=== PATIENT | female | born 1950 | race Caucasian/White ===

== ENCOUNTER 2023-03-16 20:38 | Inpatient (IN) | payer MEDICARE, OTHER ==
[~2023-03-16] VITALS: Ht 170.2 cm; Wt 54.9 kg
--- NOTE | 2023-03-16 21:05 | NUR ---
Patient placed on gurney in hallway due to no beds available in the ER at this time.
--- NOTE | 2023-03-16 21:30 | NUR ---
Patient able to ambulates to restroom with stand by assist. Patient calm and cooperative with periods of confusion.
[2023-03-16 22:40] LABS: *BILIRUBIN,URIN NEGATIVE (NEGATIVE); *BLOOD, URINE 2+ (NEGATIVE); *COLOR,URINE YELLOW (YELLOW); *KETONES,URINE NEGATIVE (NEGATIVE); *UROBILINOGEN,URINE 0.2 E.U./dl (NORMAL); LEUKOCYTE ESTERASE ,URINE 1+ (NEGATIVE); NITRITE, URINE NEGATIVE (NEGATIVE); UGLUCOSE NEGATIVE (NEGATIVE)
[2023-03-16 22:41] LABS: CARBON DIOXIDE 29 mmol/L (21-32); CHLORIDE 104 mmol/L (98-107); CREATININE 0.7 mg/dL (0.6-1.3); POTASSIUM 4.4 mmol/L (3.5-5.1); UREA NITROGEN, BLOOD 34 mg/dL (7-18)
[2023-03-16 22:43] LABS: *CLARITY,URINE HAZY (CLEAR)
[2023-03-16 22:46] LABS: *AMPHETAMINE, URINE NEGATIVE (NEGATIVE); *CANNABINOID, URINE NEGATIVE (NEGATIVE); *COCCAINE, URINE NEGATIVE (NEGATIVE); *PHENCYCLIDINE SCREEN,URINE NEGATIVE (NEGATIVE)
[2023-03-16 22:47] LABS: ALANINE AMINOTRANSFERASE 35 U/L (14-59); ALKALINE PHOSPHATASE 83 U/L (50-136); ASPARTATE AMINOTRANSFERASE 14 U/L (15-37); BILIRUBIN,DIRECT 0.1 mg/dL (0.0-0.2); BILIRUBIN,TOTAL 0.2 mg/dL (0.2-1.0); TOTAL PROTEIN, SERUM 6.8 g/dL (6.4-8.2)
[2023-03-16 22:49] LABS: ACETAMINOPHEN < 2.0 ug/mL (10-30)
--- NOTE | 2023-03-16 23:00 | NUR ---
Medically cleared by Dr Toribio.
[2023-03-16 23:11] LABS: MAGNESIUM 1.8 mg/dL (1.8-2.4)
[2023-03-16 23:36] LABS: HEMATOCRIT 32.4 % (31.2-41.9); MEAN CORPUSCULAR VOLUME 96.4 fL (75.5-95.3); PLATELET COUNT (AUTO) 249 K/uL (179-408)
[2023-03-16 23:38] LABS: BACTERIA,URINE FEW /HPF (NONE SEEN); RBC,URINE 20-50 /HPF (0-3)
--- NOTE | 2023-03-16 23:38 | NUR ---
Jermaine from PET TEAM placed patient on 5150 hold.
[2023-03-16 23:39] LABS: SQUAMOUS EPITHELIAL CELL,UR FEW /HPF (NONE SEEN)
[2023-03-16] MEDS ORDERED: IV NS 1000 ML 1,000 ML IV ONE ×2 (23:45)
[2023-03-17] MEDS ORDERED: TEMA15CA PO (00:03)
[2023-03-17] MEDS ORDERED: ALPR0.255 PO (00:03)
[2023-03-17] MEDS ORDERED: GABA-532 PO (00:03)
[2023-03-17] MEDS ORDERED: QUET25TA PO (00:03)
[2023-03-17] MEDS ORDERED: MAGNESIUM HYDROXIDE 30 ML LIQUID UDC PO PRN (01:45)
[2023-03-17] MEDS ORDERED: MAG HYDROX/AL HYDROX/SIMETH 30 ML LIQUID UDC PO PRN (01:45)
--- NOTE | 2023-03-17 01:57 | NUR ---
Transfered to MHU via gurny with no distress noted.
[2023-03-17] MEDS: TEMAZEPAM 7.5 MG CAPSULE PO PRN ×2 (02:40→23:31)
[2023-03-17 03:06] VITALS: BP 141/68; TEMP 97.6; O2SAT 99
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
[2023-03-17] MEDS: LORAZEPAM 0.5 MG TABLET PO PRN ×2 (06:23→13:23)
[2023-03-17 07:37] VITALS: BP 140/63; TEMP 98.4; O2SAT 90
[2023-03-17] MEDS: QUETIAPINE FUMARATE 25 MG TABLET PO SCH (11:33)
[2023-03-17] MEDS: GABAPENTIN 300 MG CAPSULE PO SCH ×2 (13:23→17:05)
--- NOTE | 2023-03-17 14:04 | NUR ---
ESE Initial Discharge Note: Pt currently resides at a board and care located at [address] [place] [address] . Per pt's board and care software requirements engineer, Dileep ([phone]), pt does not have any family. Dileep stated that pt requires a higher level of care that their facility cannot provide for the pt at this time. ESE will continue to work with pt, family and MD to ensure a safe and proper discharge plan.
--- NOTE | 2023-03-17 14:07 | NUR ---
Firearms Report: Correctional Treatment Specialist completed and submitted a [employer] firearms report for 5150 a danger to others and grave disability certifications. A copy of report has been placed in patient chart.
--- NOTE | 2023-03-17 14:24 | NUR ---
Nursing- Stayed in her room most of the time, comes out to the Nurses station, making her simple basic needs known to he staff, encouraged to verbalized needs and feelings .Verbalized feelings of being anxious, encouraged participation in her group activity . been meds. complaint, flat affect, guarded
[2023-03-17 15:34] VITALS: BP 123/58; TEMP 98.1; O2SAT 97
[2023-03-17] MEDS: ALPRAZOLAM 0.25 MG TABLET PO SCH (17:05)
[2023-03-17] MEDS: NITROFURANTOIN/NITROFURAN MAC 100 MG CAPSULE PO SCH (17:06)
[2023-03-17 20:15] VITALS: BP 126/64; TEMP 98.3; O2SAT 96
[2023-03-17] MEDS ORDERED: QUETIAPINE FUMARATE 25 MG TABLET PO SCH (21:00)
[2023-03-18 07:30] VITALS: BP 148/71; TEMP 98.4; O2SAT 96
[2023-03-18] MEDS: GABAPENTIN 300 MG CAPSULE PO SCH ×3 (08:13→16:06)
[2023-03-18] MEDS: NITROFURANTOIN/NITROFURAN MAC 100 MG CAPSULE PO SCH ×2 (08:13→16:06)
[2023-03-18] MEDS: QUETIAPINE FUMARATE 25 MG TABLET PO SCH ×2 (08:13→16:06)
[2023-03-18] MEDS: LORAZEPAM 0.5 MG TABLET PO PRN (08:13)
[2023-03-18 15:02] VITALS: BP 141/65; TEMP 98.4; O2SAT 98
[2023-03-18] MEDS: ALPRAZOLAM 0.25 MG TABLET PO SCH (16:06)
[2023-03-18 20:00] VITALS: BP 131/63; TEMP 97.6; O2SAT 96
[2023-03-18] MEDS ORDERED: QUETIAPINE FUMARATE 25 MG TABLET PO SCH (21:00)
[2023-03-19] MEDS: LORAZEPAM 0.5 MG TABLET PO PRN ×2 (01:55→14:21)
--- NOTE | 2023-03-19 02:00 | NUR ---
Pt was still restless during bedtime hours. Pt requested medication to help alleviate this symptom/feeling. Gave Lorazepam 0.5mg po prn. Safe environment provided. Will continue to monitor.
[2023-03-19] MEDS: TEMAZEPAM 7.5 MG CAPSULE PO PRN ×2 (02:15→21:34)
--- NOTE | 2023-03-19 02:15 | NUR ---
Gave Restoril 7.5mg po prn per patient request to help with sleep. Pt was still exhibiting restlessness via wandering, standing up/pacing her bedroom, and asking for medications even when they were already given. Safe environment provided. Addendum: 03/19/23 at 0218 by KIET GUZMAN LVN Gave Restoril 7.5mg at 2306 hours per pt request.
[2023-03-19 07:50] VITALS: BP 131/61; TEMP 97.9; O2SAT 97
[2023-03-19] MEDS: QUETIAPINE FUMARATE 25 MG TABLET PO SCH ×2 (08:15→12:33)
[2023-03-19] MEDS: NITROFURANTOIN/NITROFURAN MAC 100 MG CAPSULE PO SCH ×2 (08:15→16:51)
[2023-03-19] MEDS: GABAPENTIN 300 MG CAPSULE PO SCH ×3 (08:16→16:51)
--- NOTE | 2023-03-19 14:47 | NUR ---
Patient is isolative, withdrawn, disorganized, depressed, cooperative with nursing care, medication seeker. Patient is given Ativan 0.5 mg at 14:21 for anxiety, will be monitored for effectiveness. Reality orientation provided. Fall and safety precautions implemented.
[2023-03-19 16:16] VITALS: BP 142/69; TEMP 98; O2SAT 97
[2023-03-19] MEDS: ALPRAZOLAM 0.25 MG TABLET PO SCH (16:51)
[2023-03-19 19:55] VITALS: BP_SYST 113; BP_SYST 144; BP_DIAS 70; BP_DIAS 77; TEMP 97.6; TEMP 97.8; O2SAT 98
[2023-03-19] MEDS ORDERED: QUETIAPINE FUMARATE 25 MG TABLET PO SCH (21:00)
[2023-03-20] MEDS: ACETAMINOPHEN 325 MG TABLET PO PRN (01:39)
[2023-03-20] MEDS: LORAZEPAM 0.5 MG TABLET PO PRN ×4 (01:39→19:58)
--- NOTE | 2023-03-20 05:08 | NUR ---
Pt is confused, forgetful, anxious and restless. Pt keeps asking for medications even after she gets her medications. Pt states " Give me medications" " My is a chief" "you are going to longterm" " I am going to hali you". Pt lays down on the floor when she does not get her way and when staff tells pt she already had her medications pt stayed " you bitch" "you fucking bitch". Pt is ambulatory A/O x1 and compliant with medications. Redirected, reoriented and reassured. Safety measures in place, continue to monitor for safety and behavioral escalation.
[2023-03-20 07:33] VITALS: BP 139/64; TEMP 98; O2SAT 96
[2023-03-20] MEDS: NITROFURANTOIN/NITROFURAN MAC 100 MG CAPSULE PO SCH ×2 (08:08→16:16)
[2023-03-20] MEDS: GABAPENTIN 300 MG CAPSULE PO SCH ×3 (08:09→16:17)
[2023-03-20] MEDS: QUETIAPINE FUMARATE 25 MG TABLET PO SCH ×3 (08:09→16:17)
[2023-03-20 16:14] VITALS: BP 114/50; TEMP 97.8; O2SAT 97
[2023-03-20 19:48] VITALS: BP 132/58; TEMP 98.1; O2SAT 96
[2023-03-20] MEDS ORDERED: QUETIAPINE FUMARATE 25 MG TABLET PO SCH (21:00)
[2023-03-20] MEDS ORDERED: QUETIAPINE FUMARATE 100 MG TABLET PO SCH (21:00)
[2023-03-21] MEDS: TEMAZEPAM 7.5 MG CAPSULE PO PRN ×2 (01:04→22:40)
[2023-03-21] MEDS: LORAZEPAM 0.5 MG TABLET PO PRN ×3 (04:05→20:17)
--- NOTE | 2023-03-21 04:58 | NUR ---
Patient has been complaining of " Having a lot of anxiety " , frequently during the night. Every hour or two the patient would come to the station asking for medications and food . So far this shift, the patient has slept only 30. minutes. Reassurance is ongoing and the PRN medications ordered, appear to have little to no effect. Safety Stratiges are in place . The patient does wonder around the unit and takes things from other rooms. This scenario writer found bags of cloths in her closet ,that did not belong to her and a lunch box. The patient claimed that " Those things were given to me by the lady ". Staff is continuing to monitor any increase in confusion and delusions , as well as for any escalation r/t drug seeking behaviors.
[2023-03-21 07:51] VITALS: BP 121/62; TEMP 98.2; O2SAT 98
[2023-03-21] MEDS: NITROFURANTOIN/NITROFURAN MAC 100 MG CAPSULE PO SCH ×2 (08:15→16:24)
[2023-03-21] MEDS: QUETIAPINE FUMARATE 25 MG TABLET PO SCH ×3 (08:15→16:24)
[2023-03-21] MEDS: GABAPENTIN 300 MG CAPSULE PO SCH ×3 (08:16→16:24)
--- NOTE | 2023-03-21 15:38 | NUR ---
Received patient is alert and oriented x1 confused and disoriented, patient is isolative withdrawn no interaction with other peers,able to make simple needs know. intrusive about her medication constantly coming to nurse station asking for her medication . wandering in the unit get into everybody room required redirection at all time denies pain or discomfort,ambulated independent ,will continue close monitoring.
[2023-03-21 16:14] VITALS: BP 125/61; TEMP 98; O2SAT 98
[2023-03-21 19:55] VITALS: BP 120/62; TEMP 98.1; O2SAT 95
--- NOTE | 2023-03-21 20:30 | NUR ---
Received patient in the hallway. She is noted A/O x 2. she is able to ambulate with slow but steady gait. Patient appears depressed. she complaints of having Anxiety and she ask for medications like Xanax. she denied SI/HI/VH/AH she is able to verbalized her feeling. patient needs constant supervision and closed observation as she wonders around the unit waiting for the opportunity to go to the nurse's charting room and take stuff form there. she was caught taking a bag of clothes from that room. when asked why, she said "those are my clothes". patient also requires reality orientation and reassurance. PO fluids and snacks were given. he is reassured for his safety. safety and fall precautions are in place. will continue to monitor.
[2023-03-21] MEDS ORDERED: QUETIAPINE FUMARATE 100 MG TABLET PO SCH (21:00)
[2023-03-22] MEDS: LORAZEPAM 0.5 MG TABLET PO PRN ×2 (01:25→05:37)
--- NOTE | 2023-03-22 07:05 | NUR ---
PATIENT SLEPT FOR APPROX 2 HRS THROUGH THE NIGHT. SHE IS NOTED ASKING FOR ATIVAN PO PRN EVERY TIME IT IS DUE. SHE STATED SHE FEELS ANXIOUS ALL THE TIME. SHE IS REASSURED FOR HER SAFETY. WILL CONTINUE TO MONITOR.
--- NOTE | 2023-03-22 07:15 | NUR ---
GPS Notes: Patient awake, walking with steady gait, requesting medications. Educated patient on medications schedule.fall and safety precaution implemented, will continue to monitor.
[2023-03-22 08:03] VITALS: BP 144/74; TEMP 98.1; O2SAT 96
[2023-03-22] MEDS: QUETIAPINE FUMARATE 25 MG TABLET PO SCH (08:05)
[2023-03-22] MEDS: NITROFURANTOIN/NITROFURAN MAC 100 MG CAPSULE PO SCH (08:05)
[2023-03-22] MEDS: GABAPENTIN 300 MG CAPSULE PO SCH ×4 (08:05→20:54)
[2023-03-22] MEDS: DIVALPROEX 250 MG TABLET.DR PO SCH ×2 (10:28→20:54)
[2023-03-22] MEDS: OLANZAPINE 2.5 MG TABLET PO SCH ×3 (10:28→16:20)
--- NOTE | 2023-03-22 11:12 | NUR ---
GPS Nursing notes: Patient is walking around still focus on medications, dr gardner spoke with patient, new medication ordered, patient aware that she needs to take schedule medications as ordered, patient is redirected and medication compliant, encourage patient to participate with daily activities but refused. .
--- NOTE | 2023-03-22 13:11 | NUR ---
GPS Nursing notes: Patient is going to room to room, taking other patients belongings, patient needs constant verbal redirections for safety. Patient took medications, educated patient on medications scheduled. fall and safety precautions implemented, emotional support provided.
[2023-03-22 16:41] VITALS: BP 131/54; TEMP 97.8; O2SAT 99
[2023-03-22] MEDS: HYDROXYZINE PAMOATE 25 MG CAPSULE PO PRN (18:59)
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
[2023-03-22 19:48] VITALS: BP 136/64; TEMP 98.1; O2SAT 98
--- NOTE | 2023-03-22 20:30 | NUR ---
Received patient in her room in bed. She is noted awake A/O x 2. she is able to ambulate with slow but steady gait. patient noted less anxious less depressed. she is somewhat redirectable. She requires reality orientation and reassurance. PO fluids and snacks were given. he is reassured for his safety. safety and fall precautions are in place. will continue to monitor.
[2023-03-22] MEDS: OLANZAPINE 5 MG TABLET PO SCH (20:54)
[2023-03-22] MEDS: TEMAZEPAM 15 MG CAPSULE PO PRN (23:08)
[2023-03-23] MEDS: HYDROXYZINE PAMOATE 25 MG CAPSULE PO PRN ×2 (01:32→15:31)
[2023-03-23 07:50] VITALS: BP 105/62; TEMP 98; O2SAT 98
[2023-03-23] MEDS: GABAPENTIN 300 MG CAPSULE PO SCH ×4 (08:50→20:28)
[2023-03-23] MEDS: DIVALPROEX 250 MG TABLET.DR PO SCH ×2 (08:50→20:28)
[2023-03-23] MEDS: OLANZAPINE 2.5 MG TABLET PO SCH ×3 (08:50→17:28)
--- NOTE | 2023-03-23 10:06 | NUR ---
Patient had court hearing today, and saw setter Chani Prado gave 14 Day hold probable cause for GD.
[2023-03-23] MEDS: ACETAMINOPHEN 325 MG TABLET PO PRN (13:08)
[2023-03-23 15:13] VITALS: BP 114/55; TEMP 98; O2SAT 98
--- NOTE | 2023-03-23 15:53 | NUR ---
Received patient awake in her room. Patient is A/O X 2 to person. Patient is medication seeker, gets easily agitated and has outbursts when does not have any medications due. Patient has poor judgment and impulse control. Reality orientation provided. Fall and safety precautions implemented.
[2023-03-23 20:12] VITALS: BP 112/68; TEMP 98.1
[2023-03-23] MEDS: OLANZAPINE 5 MG TABLET PO SCH (20:27)
[2023-03-23] MEDS: TEMAZEPAM 15 MG CAPSULE PO PRN (23:44)
--- NOTE | 2023-03-24 04:57 | NUR ---
Patient A&OX1, wandering around the unit, confused, intrusive and going in other patients room. Patient not sleeping as she is fixated with her med seeking behavior. Needs constant redirection, with setting limits of the behavior necessary. She is forgetful, unable to remember informations given, tends to ask the same demands. Prns given with no effectivity. Close monitoring and frequent rounding observed for safety.
[2023-03-24] MEDS: HYDROXYZINE PAMOATE 25 MG CAPSULE PO PRN ×2 (06:11→16:04)
[2023-03-24] MEDS: ACETAMINOPHEN 325 MG TABLET PO PRN (07:28)
[2023-03-24 07:58] VITALS: BP 110/61; TEMP 98.4; O2SAT 98
[2023-03-24] MEDS: GABAPENTIN 300 MG CAPSULE PO SCH ×4 (08:48→20:46)
[2023-03-24] MEDS: DIVALPROEX 250 MG TABLET.DR PO SCH ×2 (08:48→20:46)
[2023-03-24] MEDS: OLANZAPINE 2.5 MG TABLET PO SCH ×3 (08:48→17:40)
[2023-03-24 15:10] VITALS: BP 107/50; TEMP 98.4; O2SAT 99
--- NOTE | 2023-03-24 15:49 | NUR ---
Patient is A/O X 2 to person. Patient is forgetful, confused, disoriented, disorganized, medication seeker. Patient comes in the nursing station and demands medications punching the glass. Patient states "Give me my meds!" Patient needs lots of prompts and redirection. Patient requests PRN's when she does not have any scheduled medication, and gets agitated and combative when no PRN's are due either. Patient is intrusive and hid other patient's belongings underneath her pillow. Patient has poor judgement and impulse control. Reality orientation provided. Fall and safety precautions implemented.
[2023-03-24 20:00] VITALS: BP 122/61; TEMP 98.6; O2SAT 96
[2023-03-24] MEDS: OLANZAPINE 5 MG TABLET PO SCH (20:45)
[2023-03-24] MEDS ORDERED: NITROFURANTOIN/NITROFURAN MAC 100 MG CAPSULE PO SCH (21:00)
[2023-03-24] MEDS: TEMAZEPAM 15 MG CAPSULE PO PRN (23:37)
[2023-03-25 07:30] VITALS: BP 142/66; TEMP 97.8; O2SAT 98
[2023-03-25] MEDS: OLANZAPINE 2.5 MG TABLET PO SCH ×3 (08:15→16:36)
[2023-03-25] MEDS: DIVALPROEX 250 MG TABLET.DR PO SCH ×3 (08:15→16:36)
[2023-03-25] MEDS: GABAPENTIN 300 MG CAPSULE PO SCH ×4 (08:15→20:00)
[2023-03-25] MEDS: ACETAMINOPHEN 325 MG TABLET PO PRN (10:38)
--- NOTE | 2023-03-25 14:39 | NUR ---
Patient is more redirectable, less outbursts about not having medications when she wants, every hour. Patient is more cooperative, isolative, depressed, disorganized, anxious and agitated at times. Patient is A/O X 2 to person. Patient is encourage to verbalize concerns. Fall and safety precautions implemented.
[2023-03-25 15:09] VITALS: BP 121/62; TEMP 98.2; O2SAT 98
[2023-03-25] MEDS: HYDROXYZINE PAMOATE 25 MG CAPSULE PO PRN ×2 (18:13→22:31)
[2023-03-25 19:53] VITALS: BP 122/71; TEMP 97.6; O2SAT 98
[2023-03-25] MEDS: OLANZAPINE 5 MG TABLET PO SCH (19:59)
[2023-03-26] MEDS: TEMAZEPAM 15 MG CAPSULE PO PRN (01:03)
--- NOTE | 2023-03-26 05:33 | NUR ---
Patient anxious all night. Medications constantly being requested. The PRNs that are ordered at this time, are ineffective in reducing the patients stress level. Poor sleep hours again . The patient stated " Not getting the medications I need is torture, it's abuse ! " The patient was not willing to engage in any meaningful conversation or elaborate after that. Reassurance was provided. Sleep hours are 3.15. Safety Stratiges are in place and ongoing. The patient is isolative, non interactive with peers , nervous and fixated on medications to ease " This horrible feeling that doesn't go away ".
[2023-03-26] MEDS: HYDROXYZINE PAMOATE 25 MG CAPSULE PO PRN ×3 (06:24→22:30)
--- NOTE | 2023-03-26 07:15 | NUR ---
GPS Nursing notes: Patient asleep at this time, with no S/S of distress noted, fall and safety precautions implemented, will continue to monitor.
[2023-03-26 08:35] VITALS: BP 106/49; TEMP 97.8; O2SAT 100
[2023-03-26] MEDS: OLANZAPINE 2.5 MG TABLET PO SCH ×3 (08:52→17:04)
[2023-03-26] MEDS: DIVALPROEX 250 MG TABLET.DR PO SCH ×3 (08:52→17:04)
[2023-03-26] MEDS: GABAPENTIN 300 MG CAPSULE PO SCH ×4 (08:52→20:04)
--- NOTE | 2023-03-26 13:11 | NUR ---
GPS Nursing notes: Patient is guarded, withdrawn, staying in her room, slept most of the morning, patient denies AH at this time, participated with self care, Observed patient sitting on her bed combing her hair. affect is flat but also observed a single smile when patient talking to nursing students, patient has not request prn medications at this time, patient taking all schedule medication as ordered, will continue to monitor.
--- NOTE | 2023-03-26 14:09 | NUR ---
GPS Nursing notes: Patient walking down hallway, "My is Omar Silvestre, he is the chief of the fire [employer], I am feeling anxious can I have my medication?" patient encourage to express feeling and thoughts, stated she feel anxious, prn po given at this time. Emotional support provided, will continue to monitor.
[2023-03-26 15:52] VITALS: BP 114/60; TEMP 98; O2SAT 100
[2023-03-26 19:38] VITALS: BP 152/67; TEMP 98; O2SAT 96
[2023-03-26] MEDS: ACETAMINOPHEN 325 MG TABLET PO PRN (20:04)
[2023-03-26] MEDS: OLANZAPINE 5 MG TABLET PO SCH (20:04)
[2023-03-27] MEDS: TEMAZEPAM 15 MG CAPSULE PO PRN (00:39)
[2023-03-27] MEDS: ACETAMINOPHEN 325 MG TABLET PO PRN ×2 (05:25→18:47)
[2023-03-27] MEDS: HYDROXYZINE PAMOATE 25 MG CAPSULE PO PRN ×2 (05:26→22:52)
--- NOTE | 2023-03-27 06:09 | NUR ---
Patient slept 0.00 hours last night. Per day shift, the patient has slept most of the day. All night long this patient was coming out of her room asking for medication and food. Poor situational awareness and insight. When this health technical writer encouraged the patient to wait or try other coping skill, the patient verbalizes "Call the Doctor right now or my Captain Konrad will have you fired." Redirection , distraction, education, active listening, firm kindness and limit setting were all in play during the shift. Safety Stratiges on going.
[2023-03-27 07:46] VITALS: BP 93/43; TEMP 97.2; O2SAT 97
[2023-03-27] MEDS: DIVALPROEX 250 MG TABLET.DR PO SCH ×3 (08:27→16:46)
[2023-03-27] MEDS: OLANZAPINE 2.5 MG TABLET PO SCH ×3 (08:27→16:46)
[2023-03-27] MEDS: GABAPENTIN 300 MG CAPSULE PO SCH ×4 (08:27→20:58)
[2023-03-27 15:54] VITALS: BP 119/55; TEMP 97.6; O2SAT 98
[2023-03-27] MEDS: OLANZAPINE 5 MG TABLET PO SCH (20:57)
[2023-03-27 21:45] VITALS: BP 104/50; TEMP 97.9; O2SAT 99
[2023-03-28] MEDS: ACETAMINOPHEN 325 MG TABLET PO PRN ×3 (00:36→21:14)
[2023-03-28] MEDS: TEMAZEPAM 15 MG CAPSULE PO PRN ×2 (01:55→21:45)
--- NOTE | 2023-03-28 02:59 | NUR ---
Patient was up a couple of times , anxious but with less intensity as the previous nights. This senior underwriter was able to engage in somewhat meaningful conversation with the patient. The patient stated " I have terrible thoughts , over and over in my head about seeing my dog run into the street and get hit by a car. Did you know that I Omar Silvestre but never met him in person ?" True or not, the patient seems to believe what she is saying, too be true. Eventually, the patient fell asleep. Safety Stratiges are in place and ongoing. No acute issues at this time.
[2023-03-28 07:53] VITALS: BP 112/63; TEMP 97.7; O2SAT 95
[2023-03-28] MEDS: DIVALPROEX 250 MG TABLET.DR PO SCH ×3 (08:31→16:12)
[2023-03-28] MEDS: OLANZAPINE 2.5 MG TABLET PO SCH ×3 (08:31→16:12)
[2023-03-28] MEDS: HYDROXYZINE PAMOATE 25 MG CAPSULE PO PRN (08:31)
[2023-03-28] MEDS: GABAPENTIN 300 MG CAPSULE PO SCH ×4 (08:32→20:25)
--- NOTE | 2023-03-28 09:12 | NUR ---
ESE SNF Referral: ESE faxed clinicals to [facility] ([phone]) on Tuesday03/25/23 and spoke with Joan in the admissions regarding the referral. ESE faxed to [facility] ([phone]) [address] [place] [address] and spoke with Selena who are reviewing the pt's file. ESE will follow-up.
--- NOTE | 2023-03-28 10:42 | NUR ---
SW Discharge Update: SW contacted pt's board and care general dentist/owner, Dileep ([phone]) to discuss pt's discharge plan and SW was not able to speak to him or leave a voicemail.
[2023-03-28 10:50] LABS: HEMATOCRIT 32.5 % (31.2-41.9); MEAN CORPUSCULAR HEMOGLOBIN 32.6 uug (24.7-32.8); MEAN CORPUSCULAR VOLUME 96.5 fL (75.5-95.3); PLATELET COUNT (AUTO) 243 K/uL (179-408)
[2023-03-28 11:00] LABS: BILIRUBIN,TOTAL 0.3 mg/dL (0.2-1.0); CREATININE 0.9 mg/dL (0.6-1.3); POTASSIUM 4.5 mmol/L (3.5-5.1); TOTAL PROTEIN, SERUM 6.5 g/dL (6.4-8.2)
--- NOTE | 2023-03-28 15:01 | NUR ---
Received patient is alert and oriented x2 confused and disoriented, patient is isolative withdrawn no interaction with other peers,able to make simple needs know. intrusive about her medication constantly coming to nurse station asking for her medication . denies pain or discomfort,ambulated independent ,will continue close monitoring.
[2023-03-28 17:13] VITALS: BP 99/49; TEMP 98.3; O2SAT 96
[2023-03-28] MEDS: OLANZAPINE 5 MG TABLET PO SCH (20:25)
--- NOTE | 2023-03-28 20:30 | NUR ---
Received patient in the hallway. She is noted A/O x 2. able to ambulate with slow but steady gait. her affect is blunted, mood is low. She is fixed on her medications and she is constantly asking for medications. she required to set limitations for her behavior. she denied SI/HI/VH/AH. she is somewhat better at redirections. PO fluids and snacks were given. She is reassured for her safety. safety and fall precautions are in place. will continue to monitor.
[2023-03-28 20:46] VITALS: BP 95/46; TEMP 98; O2SAT 96
[2023-03-29] MEDS: HYDROXYZINE PAMOATE 25 MG CAPSULE PO PRN ×2 (04:43→11:21)
--- NOTE | 2023-03-29 06:56 | NUR ---
PATIENT SLEPT FOR APPROX 7HRS THROUGH THE NIGHT. SHE CONTINUE FIXED ON TAKING PILLS CONSTANTLY. SHE NEEDS CONSTANT REDIRECTION AND REASSURANCE. WILL CONTINUE TO MONITOR.
[2023-03-29 07:36] VITALS: BP 125/71; TEMP 98.4; O2SAT 100
[2023-03-29] MEDS: DIVALPROEX 250 MG TABLET.DR PO SCH ×3 (08:29→16:45)
[2023-03-29] MEDS: GABAPENTIN 300 MG CAPSULE PO SCH ×4 (08:29→20:08)
[2023-03-29] MEDS: OLANZAPINE 2.5 MG TABLET PO SCH ×3 (08:29→16:45)
[2023-03-29] MEDS: ACETAMINOPHEN 325 MG TABLET PO PRN ×2 (08:54→15:42)
--- NOTE | 2023-03-29 09:00 | NUR ---
Alert, oriented x 2, depressed, anxious. Verbalized sleeping well. Denies SI. Self care. Reports of headache, Tylenol po given.
--- NOTE | 2023-03-29 12:30 | NUR ---
Anxious, Vistaril given, calm and resting after. Eating well for lunch and asking for more pudding to eat.
[2023-03-29 15:40] VITALS: BP 104/51; TEMP 98.2; O2SAT 99
--- NOTE | 2023-03-29 15:45 | NUR ---
Reports of back ache, Tylenol po given
--- NOTE | 2023-03-29 17:11 | NUR ---
Quiet, keeps to herself but verbalized need for medication when needed
[2023-03-29 19:52] VITALS: BP 116/64; TEMP 98.2; O2SAT 98
[2023-03-29] MEDS: OLANZAPINE 5 MG TABLET PO SCH (20:08)
[2023-03-29] MEDS ORDERED: DIVALPROEX 250 MG TABLET.DR PO SCH (21:00)
[2023-03-29] MEDS: TEMAZEPAM 15 MG CAPSULE PO PRN (22:23)
[2023-03-30] MEDS: HYDROXYZINE PAMOATE 25 MG CAPSULE PO PRN (01:35)
--- NOTE | 2023-03-30 05:24 | NUR ---
Patient in the room when received, responding to her name. Patient unable to engage in any meaningful conversation. She remain anxious, needing medications RTC. Poor insight and poor judgment. All prn's given with no effectivity. She is in low mood, isolative and withdrawn. Comes out of her room to demand for med, food and fluids. Patient slept poorly this shift. Med seeking behavior ensues. Safety measures in place.
--- NOTE | 2023-03-30 08:05 | NUR ---
SW Discharge Update: SW contacted pt's board and care senior quality analyst, Dileep ([phone]) to discuss pt's discharge plan and SW was not able to speak to him or leave a voicemail.
[2023-03-30 08:07] VITALS: BP 100/57; TEMP 98.2; O2SAT 98
[2023-03-30] MEDS: DIVALPROEX 250 MG TABLET.DR PO SCH ×3 (08:11→17:25)
[2023-03-30] MEDS: OLANZAPINE 2.5 MG TABLET PO SCH ×3 (08:11→17:25)
--- NOTE | 2023-03-30 08:32 | NUR ---
SW Discharge Update: SW contacted pt's board and care medical records specialist, Dileep ([phone]) to discuss pt's discharge plan and SW was not able to speak to him or leave a voicemail.
[2023-03-30] MEDS: GABAPENTIN 300 MG CAPSULE PO SCH ×3 (09:06→17:25)
--- NOTE | 2023-03-30 09:18 | NUR ---
SW Discharge Update: ESE referred pt to [facility] located at [address] [place] [address] and spoke with municipal services managerBeata [phone] who confirmed she will come to evaluate the pt. Pt does not have any family contact per pts previous board and care conservation officer Dileep [phone]. Pt is aware and agreeable with her new discharge plan as she is aware her previous board and care cannot accept her back per Dileep.
[2023-03-30] MEDS: ACETAMINOPHEN 325 MG TABLET PO PRN (11:30)
[2023-03-30 15:45] VITALS: BP 100/53; TEMP 98; O2SAT 98
--- NOTE | 2023-03-30 15:46 | NUR ---
Patient is medication seeker, demanding, disorganized, having outbursts at times, poor judgement and impulse control. Patient is A/O X 2 to person, place. Reassurance given. Fall and safety precautions implemented.
--- NOTE | 2023-03-30 16:02 | NUR ---
ESE Discharge Note: Pt will be discharged to [facility] located at [address] [facility] [address] ([phone]). ESE spoke with Beata umana ([phone]) that Maintenance Mechanic 2Nd Shift Matthias at the facility states they are ready to accept the patient today. Pt is aware and agreeable with discharge plan. Pt does not have any family contact. Pt is alert and oriented x1, is unable to plan for self-care at this time. However, pt is willing to accept care at SNF. Pt denies any suicidal or homicidal ideation. Pt will follow-up with [facility] located at [address] [place] [phone] ([phone]) via teletherapy. A psychiatrist will be assigned during pts consultation on 04/05/23. ESE referred pt to [facility] for primary doctor located at [address] [facility], [address], [place] [address] ([phone]). Pt presents with calm mood and congruent affect. PHARMACY: [facility] ([phone])[address] [place] [address].
--- NOTE | 2023-03-30 16:08 | NUR ---
ESE Final Discharge Note: Pt will be discharged to [facility] located at [address] [facility] [address] ([phone]) via board and care private vehicle transportation by contract administrator, Matthias at 5PM. ESE spoke with Beata umana ([phone]) and Tearer, Matthias ([phone]) at the [facility] who state they are ready to accept the patient today. Pt is aware and agreeable with her new discharge plan. Pt does not have any family contact. Pt is alert and oriented x1, is unable to plan for self-care at this time. However, pt is willing to accept care at [facility]. Pt denies any suicidal or homicidal ideation. Pt will follow-up with [facility] located at [address] [place] [phone] ([phone]) via teletherapy on April 05, 2023. A consultant intern will contact the pt and a psychiatrist will be assigned during pts consultation on 04/05/23. In addition, ESE referred pt to [facility] for primary doctor located at [address] [facility], [address], [place] [address] ([phone]) as pt stated she does not have a current MD. Pt is agreeable. Pt presents with calm mood and congruent affect. PHARMACY: [facility] ([phone])[address] [place] [address].
--- NOTE | 2023-03-30 17:58 | NUR ---
Received orders to discharged this patient to [facility] located at [address] [place], [place] [id number] ([phone]). ESE spoke with Beata umana ([phone]) that Fiber Drier Operator Matthias at the facility states they are ready to accept the patient today. Patient is agreeable with discharge plans, but refuses to sign discharge documentations. Patient's prescriptions were ordered in [facility] at [address] [place] [address], and firewall administrator Matthias will pick them up. Patient denies SI/HI Ah/VH, SOB, pain or any discomfort. Patient left unit at 17:45. Reassurance given. Fall and safety precautions implemented.
--- NOTE | 2023-03-31 12:37 | NUR ---
ESE Discharge Update Late Entry: ESE spoke with board and care scrum product owner, Dileep ([phone]) and Mike [phone] on 03/30/23 and stated that patient was ready for discharge and that the hospital would be very happy for the patient to return there for continuation of care. ESE provided Dileep and Mike the opportunity to provide transportation for the pt to return to their facility for the entire day on 03/30/23 since they stated they were willing to accept her back. ESE provided [employer] transportation as an alternative should they not be able to use their own. Mike follow-up and stated they could not provide transportation that day. ESE informed them that per discharge orders, the pt had a discharge order and needed to leave on the same day. photographic process worker advised them that she had an alternative accepting facility to due to their lack of response to this SWs previous calls. SW informed them that this process description writer had contacted them previously and was not able to leave a voicemail. ESE informed Dileep this SW called to ensure that pt was not welcome back prior to referring pt to a different facility. Dileep accused this process description writer of never contacting them and that they never refused the pt. ESE informed Dileep of the conversation per his refusal. Dileep continued to accuse this SW and was verbally threatening and stated "You need to fix this and give us back our patient if you don't want to get fired for probably making money off of it." ESE restated their refusal of the pt and forwarded Dileep and Mike to Director, Bri Donaldson for further discussion due to their verbal threats. Dileep continued to threaten this SW and gave this SW a deadline to fix the issue. Director, Bri Donaldson, spoke with Dileep regarding his complaints.
--- NOTE | 2023-03-31 14:12 | NUR ---
Clinical SW Note: Pt's Board and care traffic line painter, Dileep ([phone]) left a threatening/yelling voicemail for this SW at 5pm on 03/30/23 that stated, "You sent my pt to another facility which I'm guessing is your friend and you are making money off of it. If you don't want to get fired, call me back and send my pt back to me or else I will get the executives involved." ESE informed Director of Behavioral Health, Dr. Donaldson of the voicemail. Dr. Donaldson is aware that Dileep previously stated that they are not able to care for the pt upon discharge and she will need a higher level of care upon discharge. Dr. Donaldson asked this SW for Dileep's contact information as she will address this. ESE continued to receive threatening calls from Dileep on 03/31/23 as he stated, "You need to fix this and you have 2 hours, you better fix this!" Dileep continued to deny his refusal for the pt's return back to their board and care. Dileep continued to call this SW and yelled, "Did you fix it?! You have 10 minutes I said fix this!" ESE informed Dileep not to threaten or yell at this ad writer as this ad writer is speaking respectfully. Dileep yelled, "I don't care if your respectful I said you have 10 minutes!" ESE informed Dr. Donaldson again that this ad writer continues to receive threatening calls by Dileep. Dr. Donaldson is aware and informed this SW that she will continue all communication with Dileep. Dr. Donaldson informed this SW to notify her if they continue to call this SW.
== END 2023-03-30 17:45 | DRG 885 ==
LOC: ER 20:42 → GPS 23:45
PROVIDERS: ADMIT Psychiatry & Neurology Psychosomatic Medicine; ATTEND Internal Medicine
DX: F29 Unspecified psychosis not due to a substance or known physiological condition (principal); E86.0 Dehydration; F20.9 Schizophrenia, unspecified; Z87.891 Personal history of nicotine dependence; Z88.1 Allergy status to other antibiotic agents; F41.9 Anxiety disorder, unspecified; F43.10 Post-traumatic stress disorder, unspecified; F60.89 Other specific personality disorders; F41.0 Panic disorder [episodic paroxysmal anxiety]
CPT/HCPCS: 36415; 80164; 83735; 85025; A4663; G0480; J3490; J7040